=== PATIENT | male | born 1970 | race Caucasian/White ===

== ENCOUNTER 2022-09-26 21:38 | Emergency (ER) | payer BC, SELFPAY ==
[2022-09-26] VITALS (7 sets, daily range): BP systolic 140–189; BP diastolic 90–113; PULSE 73–103; RESP 15–20; TEMP 36.2–36.6; O2SAT 95–100
--- NOTE | 2022-09-26 21:41 | ECG_ITS ---
Measurements Intervals [place] Rate: 96 P: 7 WV: 149 QRS: -21 QRSD: 94 T: 6 QT: 352 QTc: 447 Interpretive Statements SINUS RHYTHM BORDERLINE LEFT AXIS DEVIATION [QRS AXIS < -20] MODERATE VOLTAGE CRITERIA FOR LVH, CONSIDER NORMAL VARIANT [MEETS CRITERIA IN ONE OF: R(aVL), S(V1), R(V5), R(V5/V6)+S(V1)] NO PREVIOUS ECG AVAILABLE FOR COMPARISON Electronically Signed On 09-27-2022 10:50:14 CDT by Ashly Schumacher M.D.
[2022-09-26 21:56] LABS: Basophils Percent Auto 0.3 % (0.2-1.2); Eosinophils Absolute Auto 0.1 K/mm3 (0-0.3); Eosinophils Percent Auto 1.2 % (0-4.4); Hemoglobin 16.5 g/dL (14.0-18.0); Immature Granulocyte Absolute 0.04 K/mm3 (0.00-0.031); Immature Granulocyte Percent A 0.4 % (0-0.5); Lymphocytes Absolute Auto 3.26 K/mm3 (0.9-3.2); Lymphocytes Percent Auto 29.7 % (18.3-44.2); Mean Corpuscular HGB Conc 34.4 g/dl (32-36); Mean Corpuscular Hemoglobin 31.4 pg (26-34); Mean Corpuscular Volume 91.4 fl (80-100); Mean Platelet Volume 10.1 fl (7.4-10.4); Monocytes Absolute Auto 0.9 K/mm3 (0.1-0.6); Monocytes Percent Auto 8.5 % (2.6-8.5); Neutrophils Absolute Auto 6.6 K/mm3 (1.3-6.7); Neutrophils Percent Auto 59.9 % (45.5-73.1); Platelet Count Result 266 k/mm3 (150-375); Red Blood Count 5.25 M/mm3 (4.6-6.20)
[2022-09-26 22:07] LABS: Alanine Aminotransferase 34 U/L (6-50); Albumin Level 4.6 g/dL (3.5-5.1); Alkaline Phosphatase 91 U/L (38-126); Anion Gap 8 mmol/L (8-16); Aspartate Amino Transferase 34 U/L (17-59); Bilirubin,Total 0.8 mg/dL (0.2-1.3); Blood Urea Nitrogen 22 mg/dL (9-20); Calcium 9.3 mg/dL (8.4-10.2); Carbon Dioxide 27 mmol/L (22-30); Chloride 101 mmol/L (98-107); Estimated CRCL calculation 63 ml/min; Estimated Glomerular Filt Rate 54; Glucose 113 mg/dL (65-110); Potassium 3.6 mmol/L (3.4-5.0); Sodium 136 mmol/L (137-145)
--- NOTE | 2022-09-27 00:42 | ED.GENADULT ---
HPI - General Adult General Chief complaint: Dizziness Stated complaint: dizzy Time Seen by Provider: 09/26/22 23:27 History of Present Illness HPI narrative: this is a 52-year-old male who has recently given a home blood pressure monitor by his primary care physician presenting to ED after an elevated blood pressure reading. Patient was at home and started to feel a little woozy and anxious. He then took his blood pressure and was elevated at 170/100. He then came to the emergency department for evaluation. At this time he has no complaints. No chest pain difficulty breathing or neurologic symptoms. Related Data Allergies Allergy/AdvReac Type Severity Reaction Status Date / Time No Known Allergies Allergy Verified 09/26/22 22:27 Exam Narrative: APPEARANCE: No apparent distress. Head: atraumatic. EYES: EOMI, NOSE: Atraumatic NECK: Trachea midline RESPIRATORY: No increased rate of breathing , clear to auscultation CARDIOVASCULAR: RRR, no peripheral edema ABDOMINAL: Non-distended MUSCULOSKELETAl: No obvious deformities NEURO: Alert.Cranial nerves 2-12 grossly intact. Sensation light touch, motor function cerebellar function intact for 4 extremities. Gait exam was normal. SKIN:: Warm, dry. Normal color PSYCHIATRIC: Normal affect Course Vital Signs Vital signs: Vital Signs Temperature 97.2 F L 09/26/22 21:41 Pulse Rate 103 H 09/26/22 21:41 Respiratory Rate 20 09/26/22 21:41 Blood Pressure 189/113 H 09/26/22 21:41 Pulse Oximetry 100 09/26/22 21:41 Oxygen Delivery Room Air 09/26/22 21:41 Temperature 97.9 F 09/26/22 22:20 Pulse Rate 73 09/26/22 22:59 Respiratory Rate 15 09/26/22 22:59 Blood Pressure 140/90 09/26/22 22:59 Pulse Oximetry 95 09/26/22 22:59 Oxygen Delivery Room Air 09/26/22 21:41 Medical Decision Making [facility] Narrative Medical decision making narrative: -Presentation: 52-year-old male presenting with an episode of anxiety and elevated blood pressures at home. He is currently resting comfortably with a normal blood pressure and no symptoms. lab work and other studies were ordered per nursing protocol. -DDX includes but is not limited to: Anxiety, asymptomatic hypertension, stroke -Co-morbidities complicating care: none -Social determinants of health: patient works as a counselor manager at [employer], he lives alone with his children -External Chart Review: none -Hx from independent Sources: none -Discussion of Management/Consultants: none -Independent interpretation of studies: Independent EKG interpretation: Rhythm [sinus], Rate [96], [place] -[normal], [place] -[normal], QRS [narrow], QTC [normal], T waves -[negative for concerning inversions], ST Segments - [Negative for concerning elevations] Final interpretations: [Normal Sinus Rhythm] CBC was normal. Metabolic panel showed BUN of 22 and creatinine of 1.4 although I have no baseline which to compare. Dx tests considered but not ordered: -Prnocedures: none -Interventions: None -Shared decision making / Disposition: Patient had isolated elevated blood pressure that was associated with anxiety. At this time he has no physical exam findings that are concerning. He will be discharged with primary care follow-up. -RX Vital Signs Vital Signs: Vital Signs Temperature 97.2 F L 09/26/22 21:41 Pulse Rate 103 H 09/26/22 21:41 Respiratory Rate 20 09/26/22 21:41 Blood Pressure 189/113 H 09/26/22 21:41 Pulse Oximetry 100 09/26/22 21:41 Oxygen Delivery Room Air 09/26/22 21:41 Temperature 97.9 F 09/26/22 22:20 Pulse Rate 73 09/26/22 22:59 Respiratory Rate 15 09/26/22 22:59 Blood Pressure 140/90 09/26/22 22:59 Pulse Oximetry 95 09/26/22 22:59 Oxygen Delivery Room Air 09/26/22 21:41 Lab Data 09/26/22 21:47 09/26/22 21:47 Labs: Lab Results 09/26/22 Range/Units 21:47 WBC 11.0 H (4.5-10.0) K/mm3 RBC 5.25 (4.6-
[2022-09-27 00:58] VITALS: BP 126/91; PULSE 63; RESP 15; TEMP 36.6; O2SAT 97
== END 2022-09-27 00:59 | disposition home or self-care (01) ==
PROVIDERS: Emergency Provider Emergency Medicine
DX: I10 Essential (primary) hypertension (principal); R94.31 Abnormal electrocardiogram [ECG] [EKG]
CPT/HCPCS: 36415; 80053; 85025; 93005; 99284

== ENCOUNTER 2023-04-23 11:15 | Emergency (ER) | payer BC, SELFPAY ==
--- NOTE | 2023-04-23 11:34 | ED.URI ---
HPI - URI/Sore Throat General Chief Complaint: Upper Respiratory Infection Stated Complaint: congestion,sorethroat Time Seen by Provider: 04/23/23 11:41 Source: patient, RN notes reviewed and old records reviewed Mode of arrival: ambulatory Limitations: no limitations History of Present Illness HPI Narrative: 52-year-old male presents to the [facility] with complaints of congestion and a sore throat. States he did a home test COVID 2 weeks ago and was positive. Reports a fever of 1 0 yesterday. Any Related Data Home Medications Medication Instructions Recorded Confirmed lisinopril 20 mg tablet 20 mg PO DAILY 04/23/23 04/23/23 Allergies Allergy/AdvReac Type Severity Reaction Status Date / Time No Known Allergies Allergy Verified 04/23/23 11:22 Review of Systems Review of Systems: All systems reviewed & are unremarkable except as noted in HPI and below Constitutional: Constitutional: Reports no additional constitutional complaints Eyes: Eyes: Reports no additional eye complaints ENT: Reports as per HPI, Reports nasal congestion and Reports sore throat Cardiovascular: Cardiovascular: Reports no additional cardiovascular complaints, Denies chest pain and Denies dyspnea Respiratory: Respiratory: Reports no additional respiratory complaints, Denies chest congestion, Denies cough and Denies dyspnea Gastrointestinal: Gastrointestinal: Reports no additional gastrointestinal complaints, Denies abdominal pain, Denies nausea and Denies vomiting Musculoskeletal: Musculoskeletal: Reports no additional musculoskeletal complaints Integumentary/Breasts: Skin/Breast: Reports system reviewed and no additional complaints, except as docu Neurologic: Reports system reviewed and no additional complaints, except as documented Psychiatric: Psychiatric: Reports no additional psychiatric complaints Allergic/Immunologic: Allergic/Immunologic: Reports no additional allergic/immunologic complaints [facility] Past Medical History Medical History History of high blood pressure Comments At the time of my signature, I reviewed and agree with the nursing past medical, surgical, social, and family history. There is no relevant family history pertinent to the patient complaint. Exam Const: General: cooperative, healthy appearing, comfortable, no acute distress, well developed, alert and well nourished Nutritional Appearance: well nourished Orientation/consciousness: patient oriented x3 Limitations: no limitations HENMT: Head: normal to inspection Ears: hearing grossly normal bilaterally, external ears normal, TM's normal bilaterally, EAC's normal, mastoids normal and no periauricular adenopathy Face/Nose/Sinus: Normal external nose present, Normal nares present, Normal nasal mucous membranes and turbinates present, normal facial exam and face symmetric Face and sinus: normal facial exam and face symmetric Mouth: Yes Normal oral and palatal mucosa present, Yes lip normal, Yes tongue normal and Yes moist mucous membranes Throat: posterior oropharynx normal, uvula midline and abnormal tonsil bilateral erythema; no exudates and no hypertrophy Eyes: General: appearance normal, both eyes and all related structures Alignment and Position: alignment normal Periorbital: periorbital findings normal Pupils: Equal, round and reactive pupils present EOM: EOMs intact bilaterally Neck: Neck: normal visual inspection, full ROM, no lymphadenopathy and no meningeal signs Chest: Chest palpation & inspection: normal inspection of the chest Resp: Effort & Inspection: normal respiratory effort and able to speak in complete sentences Auscultation: clear to auscultation bilaterally, no crackles, no rales, no rhonchi and no wheezes Cardio: Rate: regular rate Rhythm: regular rhythm Back/Spine/Pelvis: Cervical Spine: cervical ROM normal Skin: General skin exam: normal color and no rashes or lesions note
[2023-04-23 11:37] VITALS: BP 137/90; PULSE 98; RESP 16; TEMP 37; O2SAT 98
== END 2023-04-23 11:58 | disposition home or self-care (01) ==
PROVIDERS: Emergency Provider Nurse Practitioner
DX: J02.0 Streptococcal pharyngitis (principal); Z79.899 Other long term (current) drug therapy
CPT/HCPCS: 87880; 99213; G0463